=== PATIENT | male | born 1940 | race Caucasian/White ===

== ENCOUNTER 2018-05-04 10:38 | Day surgery (SDC) | payer MEDICARE ==
[~2018-05-04] VITALS: Ht 154.9 cm; Wt 94.2 kg
[~2018-05-04 10:38] MED LIST: ALBU90OI61 INH; ARTTEAOPSO; ASCO500; Aspir 8181 MG PO; CHOL10002 PO; CYAN500 PO; HYDCHL12.5 PO; LEVSOD150; LIDOPRO PATCH1 EACH TOP; LISI5; OMEP20ER; OMEPRAZOLE MAGN20 MG PO; OXYB5; SIMV10 PO; Synthroid112 MCG; TOLT4 PO; VENL150ER PO
[2018-05-05 04:12] LABS: BASOPHILS ABSOLUTE AUTO 0.04 K/mm3 (0.00-0.23); BASOPHILS PERCENT AUTO 1 % (0-2); EOSINOPHILS PERCENT AUTO 9 % (0-6); Hematocrit 38.9 % (37.0-53.0); IMMATURE GRAN ABSOLUTE AUTO 0.02 K/mm3 (0.00-0.10); IMMATURE GRAN PERCENT AUTO 0 % (0-1); LYMPHOCYTES ABSOLUTE AUTO 1.49 K/mm3 (0.84-5.20); LYMPHOCYTES PERCENT AUTO 22 % (21-46); MONOCYTES ABSOLUTE AUTO 0.65 K/mm3 (0.16-1.47); MONOCYTES PERCENT AUTO 10 % (4-13); Mean Corpuscular HGB 32.7 pg (26.0-34.0); Mean Corpuscular HGB Conc 33.4 g/dL (31.5-36.5); Mean Corpuscular Volume 98 fL (80-100); Mean Platelet Volume 11.3 fL (9.1-12.4); NEUTROPHILS PERCENT AUTO 59 % (41-73); Platelet Count 193 K/mm3 (150-400); RDW Coefficient Variation 12.7 % (11.7-14.2); RDW Standard Deviation 45.8 fL (35.1-46.3); Red Blood Cell Count 3.98 M/mm3 (4.30-5.90)
[2018-05-05 04:29] LABS: Anion Gap 6 mmol/L (6-16); Blood Urea Nitrogen 25 mg/dL (8-24); Bun/Creatinine Ratio 23.6 (12.0-20.0); CO2, Blood 30 mmol/L (21-32); Calcium, Blood 8.5 mg/dL (8.5-10.1); Chloride, Blood 106 mmol/L (98-108); Creatinine, Blood 1.06 mg/dL (0.60-1.20); Glomerular Filtration Rate >60 (60-); Glucose, Blood 86 mg/dL (70-99); Potassium, Blood 3.9 mmol/L (3.5-5.5); Sodium, Blood 142 mmol/L (136-145)
== END 2018-05-05 12:00 | disposition home or self-care (01) ==
LOC: PCU 10:38 → MHTC 10:38 → PCU 14:23 → MHTC 05-05 12:00
PROVIDERS: Internal Medicine Interventional Cardiology
PROC: 027136Z Dilation of Coronary Artery, Two Arteries with Three Drug-eluting Intraluminal Devices, Percutaneous Approach (ICD-10-PCS; principal; 2018-05-04)
PROC: 4A033BC Measurement of Arterial Pressure, Coronary, Percutaneous Approach (ICD-10-PCS; principal; 2018-05-04)
PROC: B241ZZ3 Ultrasonography of Multiple Coronary Arteries, Intravascular (ICD-10-PCS; principal; 2018-05-04)
DX: I25.119 Atherosclerotic heart disease of native coronary artery with unspecified angina pectoris (principal); I35.0 Nonrheumatic aortic (valve) stenosis; I10 Essential (primary) hypertension; G47.30 Sleep apnea, unspecified; Z79.82 Long term (current) use of aspirin
CPT/HCPCS: 36415; 80048; 85025; 92978; 93005; 93010; 93454; 93571; 93572; 99152; 99153; C1725; C1753; C1760; C1769; C1874; C1887; C9600; C9601; J0360; J1644; J2250; J3010; J7030; J7040; Q9967

== ENCOUNTER 2020-11-08 17:12 | Observation (INO) | payer OTHER, MEDICARE ==
[~2020-11-08] VITALS: Ht 152.4 cm; Wt 104.2 kg
[2020-11-08 19:36] LABS: Influenza A, PCR NEGATIVE (NEGATIVE); Influenza B, PCR NEGATIVE (NEGATIVE); Resp Syncytial Virus, PCR NEGATIVE (NEGATIVE); SARS-Cov-2 (COVID-19) PCR, MMC NEGATIVE (NEGATIVE)
[2020-11-08] MEDS ORDERED: LOSA50 PO (20:04)
[2020-11-08] MEDS ORDERED: HYDROCHLOROTH12.5 MG PO (20:04)
[2020-11-08] MEDS ORDERED: TERA5 PO (20:05)
[2020-11-08] MEDS ORDERED: LEVSOD112 PO (20:05)
[2020-11-08] MEDS ORDERED: FURO20 PO (20:05)
[2020-11-08] MEDS ORDERED: CLOP75 PO (20:05)
[2020-11-08] MEDS ORDERED: TOLT4 PO (20:06)
[2020-11-08] MEDS ORDERED: ZOCOR20 MG PO (20:06)
[2020-11-08] MEDS ORDERED: AMLO10 PO (20:06)
[2020-11-08 20:10] LABS: Albumin, Blood 3.6 g/dL (3.4-5.0); Bilirubin, Direct 0.1 mg/dL (0.0-0.3); Bilirubin, Indirect 0.4 mg/dL (0.1-0.7); Bilirubin, Total 0.5 mg/dL (0.1-1.0); Globulin, Blood 3.5 g/dL (2.2-4.0); Total Protein, Blood 7.1 g/dL (6.4-8.2)
[2020-11-08 20:17] LABS: Source, Urine Clean Catch
[2020-11-08 20:28] LABS: Appearance, Urine Clear (Clear); Bilirubin, Urine Neg (Neg); Blood, Urine Neg (Neg); Color, Urine Yellow (P-Yellow); Glucose Qualitative, Urine Neg (Neg); Ketones, Urine Neg (Neg); Leukocyte Esterase, Urine Neg (Neg); Nitrite, Urine Neg (Neg); Protein, Urine Neg (Neg); Specific Gravity, Urine 1.015 (1.003-1.022); Urobilinogen, Urine NORM (Normal)
--- NOTE | 2020-11-09 04:32 | NUR ---
SUMMARY PT ARRIVED TO FLOOR IN NO DISTRESS. PT DENIES SOB OR CX PAIN. PT HAS STAYED THE NIGHT WITH PT. PT CURRENTLY ON RA AND SPO2 >90%. PT TOLERATING CPAP WHILE SLEEPING. PT REPORTS HAVING DIFFICULTY SLEEPING AND GETTING COMFORTABLE. PT CURRENTLY RESTING AND BREATHING EASY. CALL LIGHT IN REACH AND BED ALARM ON.
[2020-11-09 05:00] LABS: BASOPHILS ABSOLUTE AUTO 0.04 K/mm3 (0.00-0.23); BASOPHILS PERCENT AUTO 1 % (0-2); EOSINOPHILS ABSOLUTE AUTO 0.29 K/mm3 (0.00-0.68); EOSINOPHILS PERCENT AUTO 6 % (0-6); Hematocrit 35.8 % (37.0-53.0); Hemoglobin 11.7 g/dL (13.5-17.5); IMMATURE GRAN ABSOLUTE AUTO 0.03 K/mm3 (0.00-0.10); IMMATURE GRAN PERCENT AUTO 1 % (0-1); LYMPHOCYTES ABSOLUTE AUTO 1.56 K/mm3 (0.84-5.20); LYMPHOCYTES PERCENT AUTO 29 % (21-46); MONOCYTES ABSOLUTE AUTO 0.49 K/mm3 (0.16-1.47); MONOCYTES PERCENT AUTO 9 % (4-13); Mean Corpuscular HGB 32.5 pg (26.0-34.0); Mean Corpuscular HGB Conc 32.7 g/dL (31.5-36.5); Mean Corpuscular Volume 99 fL (80-100); Mean Platelet Volume 11.2 fL (9.1-12.4); NEUTROPHILS PERCENT AUTO 55 % (41-73); Platelet Count 142 K/mm3 (150-400); RDW Coefficient Variation 13.2 % (11.7-14.2); RDW Standard Deviation 47.7 fL (35.1-46.3); White Blood Cell Count 5.31 K/mm3 (4.00-11.30)
[2020-11-09 05:31] LABS: Anion Gap 6 mmol/L (6-16); Blood Urea Nitrogen 29 mg/dL (8-24); Bun/Creatinine Ratio 22.5 (12.0-20.0); CO2, Blood 29 mmol/L (21-32); Calcium, Blood 8.7 mg/dL (8.5-10.1); Chloride, Blood 109 mmol/L (98-108); Creatinine, Blood 1.29 mg/dL (0.60-1.20); Glomerular Filtration Rate 57 (60-); Glucose, Blood 111 mg/dL (70-99); Phosphorus, Blood 3.1 mg/dL (2.5-4.9); Sodium, Blood 144 mmol/L (136-145)
--- NOTE | 2020-11-09 11:50 | NUR ---
PT WAS HAVING ANXIETY AT THIS TIME. WHEN ASKED ABOUT WHAT'S BOTHERING HIM; HE STATED HE DOES NOT KNOW. HE FELT LIKE HE WAS HAVING SOB; O2 SATS WNL. HE ALSO STATED HE FELT LIKE ITS A CP BUT CALLED PARTS REPRESENTATIVE- PT NSR @70S. PT STATED NOT SURE IF ITS CHEST PAIN OR NOT; SAID HE'S PROBABLY HAVING ANXIETY. HE STATED CP POINTED IN THE MIDDLE OF HIS CHEST; GAVE HIM O2 1-2L; HE SAID HE FELT BETTER AND NO MORE CP. RECEIVED AN ORDER FOR ATIVAN PO 0.5MG. PT STATED HE FELT SO MUCH BETTER. HE STATED HE DOES NOT TAKE ANY ANXIETY MEDS AT HOME, BUT TAKES ANTIDEPRESSION MEDS.
--- NOTE | 2020-11-09 16:44 | NUR ---
DISCHARGED PT DISCHARGED TO HOME WITH H&H. PT TRANSPORTED VIA WC WITH DTR AND THIS RN. PT PULLED IV BEFORE IV GET DC'D. PT DENIES ANY DISTRESS OR SOB DURING DISCHARGE. PT DENIES CP. PT EDUCATED ABOUT THE MEDICATION AND PCP FU; WILL FU [facility] AND [facility] AND [facility] AWARE. PT ALSO RECEIVED FLUIDS OF LR BEFORE GOING HOME. VSS. MED REC DONE.
== END 2020-11-09 16:24 | disposition home health service (06) ==
LOC: ER 17:12 → MEDS 17:13
PROVIDERS: Emergency Medicine; Nurse Practitioner Acute Care; ADMIT Internal Medicine
DX: N17.9 Acute kidney failure, unspecified (principal); R06.02 Shortness of breath; R79.1 Abnormal coagulation profile; G47.33 Obstructive sleep apnea (adult) (pediatric); E03.9 Hypothyroidism, unspecified; I10 Essential (primary) hypertension; E78.5 Hyperlipidemia, unspecified; Z91.81 History of falling; Z79.01 Long term (current) use of anticoagulants; Z20.822 Contact with and (suspected) exposure to COVID-19; Z87.891 Personal history of nicotine dependence
CPT/HCPCS: 0241U; 36415; 74176; 78580; 80069; 80076; 81003; 83690; 84484; 85025; 85730; 93005; 93010; 93970; 94660; 94762; 96372; 97110; 97116; 97162; 99285-25; A9270; A9540; G0378; J1650; J7120

== ENCOUNTER 2021-01-08 21:59 | Emergency (ER) | payer MEDICARE, OTHER ==
[~2021-01-08] VITALS: Ht 154.9 cm; Wt 103.0 kg
[~2021-01-08 21:59] MED LIST changes: +AMLO10 PO; +CLOP75 PO; +FURO20 PO; +HYDROCHLOROTH12.5 MG PO; +LEVSOD112 PO; +LOSA50 PO; +TERA5 PO; +ZOCOR20 MG PO
[2021-01-08] MEDS ORDERED: ASCO500 PO (22:51)
[2021-01-08] MEDS ORDERED: Aspir 8181 MG PO (22:51)
[2021-01-08] MEDS ORDERED: VITAMIN D325 MC3 PO (22:52)
[2021-01-08] MEDS ORDERED: VITAMIN B125000 MC1 PO (22:53)
[2021-01-08] MEDS ORDERED: OMEP20ER PO (22:54)
[2021-01-08] MEDS ORDERED: LOSA50 PO (22:54)
[2021-01-08] MEDS ORDERED: PROAIR DIGIHAL90 MCG INH (22:55)
[2021-01-08] MEDS ORDERED: VENL75ER PO (22:56)
== END 2021-01-09 02:30 | disposition home or self-care (01) ==
LOC: ER 21:59
DX: S09.90XA Unspecified injury of head, initial encounter (principal); M54.6 Pain in thoracic spine; M54.5 Low back pain; K21.9 Gastro-esophageal reflux disease without esophagitis; E03.9 Hypothyroidism, unspecified; Z88.5 Allergy status to narcotic agent; Z79.82 Long term (current) use of aspirin; Z79.899 Other long term (current) drug therapy; Z87.891 Personal history of nicotine dependence; W18.30XA Fall on same level, unspecified, initial encounter; Y92.009 Unspecified place in unspecified non-institutional (private) residence as the place of occurrence of the external cause
CPT/HCPCS: 70450; 72080; 99284-25; A9270

== ENCOUNTER 2021-08-22 13:11 | Inpatient (IN) | payer OTHER ==
[~2021-08-22] VITALS: Ht 154.9 cm; Wt 99.9 kg
[~2021-08-22 13:11] MED LIST changes: +ASCO500 PO; +OMEP20ER PO; +PROAIR DIGIHAL90 MCG INH; +VENL75ER PO; +VITAMIN D32000 UNI1 PO; +Vitamin B-12100 MCG PO
[2021-08-22 13:57] LABS: BASOPHILS ABSOLUTE AUTO 0.03 K/mm3 (0.00-0.23); BASOPHILS PERCENT AUTO 0 % (0-2); EOSINOPHILS ABSOLUTE AUTO 0.08 K/mm3 (0.00-0.68); EOSINOPHILS PERCENT AUTO 1 % (0-6); Hematocrit 35.4 % (37.0-53.0); Hemoglobin 11.9 g/dL (13.5-17.5); IMMATURE GRAN ABSOLUTE AUTO 0.05 K/mm3 (0.00-0.10); IMMATURE GRAN PERCENT AUTO 1 % (0-1); LYMPHOCYTES ABSOLUTE AUTO 0.84 K/mm3 (0.84-5.20); LYMPHOCYTES PERCENT AUTO 12 % (21-46); MONOCYTES ABSOLUTE AUTO 0.85 K/mm3 (0.16-1.47); MONOCYTES PERCENT AUTO 12 % (4-13); Mean Corpuscular HGB 33.2 pg (26.0-34.0); Mean Corpuscular HGB Conc 33.6 g/dL (31.5-36.5); Mean Corpuscular Volume 99 fL (80-100); NEUTROPHILS ABSOLUTE AUTO 5.07 K/mm3 (1.96-9.15); NEUTROPHILS PERCENT AUTO 73 % (41-73); Platelet Count 147 K/mm3 (150-400); RDW Coefficient Variation 13.4 % (11.7-14.2); RDW Standard Deviation 49.1 fL (35.1-46.3); Red Blood Cell Count 3.58 M/mm3 (4.30-5.90); White Blood Cell Count 6.92 K/mm3 (4.00-11.30)
[2021-08-22] MEDS ORDERED: Venlafaxine HC225 MG PO (14:31)
[2021-08-22] MEDS ORDERED: BUSP5 PO (14:31)
[2021-08-22] MEDS ORDERED: ZINC15 PO (14:32)
[2021-08-22] MEDS ORDERED: TIOT18 INH (14:32)
[2021-08-22 14:35] LABS: Bilirubin, Total 0.4 mg/dL (0.1-1.0); Bun/Creatinine Ratio 21.5 (12.0-20.0); Calcium, Blood 8.6 mg/dL (8.5-10.1); Creatinine, Blood 1.58 mg/dL (0.60-1.20); Globulin, Blood 2.9 g/dL (2.2-4.0); Potassium, Blood 4.8 mmol/L (3.5-5.5); Total Protein, Blood 5.9 g/dL (6.4-8.2); Troponin I 0.035 ng/mL (0.000-0.040)
[2021-08-22] MEDS ORDERED: LIDO700A20 TOP (23:01)
[2021-08-22] MEDS ORDERED: MEMA5TAB PO (23:02)
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
--- NOTE | 2021-08-23 05:30 | NUR ---
SHIFT SUMMARY: BP IS STABLE, PATIENT IS CONTINENT. OCCASSIONALY USES THE CALL [facility] BUT USUALLY SETS OFF THE BED ALARM OR YELLS OUT FOR ASSISTANCE. REPEAT TROPONIN WAS 0.165. RESULT WAS CALLED TO DR LAND. NO EVENTS ON TELI AND BED ALARM REMAINS ON FOR SAFETY.
[2021-08-23 05:40] LABS: Bun/Creatinine Ratio 20.3 (12.0-20.0); Calcium, Blood 8.5 mg/dL (8.5-10.1); Creatinine, Blood 1.28 mg/dL (0.60-1.20); Potassium, Blood 4.2 mmol/L (3.5-5.5)
--- NOTE | 2021-08-23 12:06 | NUR ---
Initial Interview with [facility] Community Scale Tester 1. Who did you speak with? Spoke with patient's Priscilla 2. What is the patient's prior level of functions? Patient lives with his Priscilla. Patient has dementia and Priscilla provides assistance with ADL's. Daughter Liliana lives on the property in a fifth wheel (works night time nanny) and she assists in the evening as needed. Patient has a rollator, states he is having difficulty using and cannot properly use at this time. Patient no longer drives, Priscilla and Liliana provide transportation as needed. Priscilla states she assist with ADL's until she is no longer able to do so and does not want patient to go into vermin exterminator care facility at this time. 3. What is the patient's current living situation? Patient lives with his Priscilla and daughter lives on the property in a 5th wheel camper trailer and provides assistance when needed. 4. Is the patient and/or family able to provide transportation to and from doctor's appointments and case picker prescriptions? Yes, and daughter provide transportation. 5. Does patient still drive? No 6. POA/PCP/NOK: NOK: Priscilla and daughter Liliana/PCP: ROJAS Julio 7. Discharge goals: TBD -Home: TBD -DME: TBD -Medication Management: -[facility] -Housekeeping need: -Cooking: 8. List barriers to discharge: None known at this time 9. Discharge Plan: Home with Home Health/contact [facility] Jonathan to coordinate caregiving services assessment 10. PCP Follow up appointment: Will be scheduled within seven calendar days of discharge 11. : Yes, 80% unemployable
[2021-08-23 13:35] LABS: Anti-Xa UFH, PHA Monitoring <0.10 IU/mL; Prothrombin Time Results 11.5 Sec (9.7-11.5)
--- NOTE | 2021-08-23 17:12 | NUR ---
SHIFT SUMMARY PATIENT DENIES PAIN, NAUSEA, AND SHORTNESS OF BREATH. PATIENT IS ON ROOM AIR SATURATING AT 94%. PATIENT DOES USE 2L VIA N/C AT NIGHT. THAT IS BASELINE. PATIENT IS AO X2. PATIENT IS IMPULSIVE AND ATTEMPTED TO GET OOB TWICE TODAY UNASSISTED. PT WORKED WITH PATIENT THIS MORNING, PATIENT IS A MODERATE ASSSIT WITH 1 PERSON. STRESS TEST ORDERED. HEPARIN DRIP STARTED. PATIENT IS EATING AND DRINKING WELL. PATIENT IS PLEASANT AND COOPERATIVE WITH CARE.
[2021-08-23 19:02] LABS: Influenza A, PCR NEGATIVE (NEGATIVE); Influenza B, PCR NEGATIVE (NEGATIVE); Resp Syncytial Virus, PCR NEGATIVE (NEGATIVE)
[2021-08-23 19:05] LABS: SARS-Cov-2 (COVID-19) PCR, MMC POSITIVE (NEGATIVE)
--- NOTE | 2021-08-23 20:25 | NUR ---
CALLED HOSPITALIST INFORMED HER THAT THE PT'S REQUESTS A URINE & BLOOD CULTURE. INFORMED HER THAT THE PT'S REQUESTS A VISIT FROM THE HOSPITALIST TO THE ROOM SO THAT SHE CAN RELAY HER CONCERNS RE: THE PT
[2021-08-23 22:18] LABS: Source, Urine Voided
[2021-08-23 22:25] LABS: Bilirubin, Urine Neg (Neg); Blood, Urine Neg (Neg); Glucose Qualitative, Urine Neg (Neg); Ketones, Urine Neg (Neg); Leukocyte Esterase, Urine Neg (Neg); Nitrite, Urine Neg (Neg); Protein, Urine 1+ (Neg); Urobilinogen, Urine NORM (Normal)
[2021-08-23 22:32] LABS: Appearance, Urine Clear (Clear); Color, Urine Yellow (P-Yellow)
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
[2021-08-24 05:25] LABS: BASOPHILS ABSOLUTE AUTO 0.04 K/mm3 (0.00-0.23); BASOPHILS PERCENT AUTO 1 % (0-2); EOSINOPHILS ABSOLUTE AUTO 0.05 K/mm3 (0.00-0.68); EOSINOPHILS PERCENT AUTO 1 % (0-6); Hematocrit 37.5 % (37.0-53.0); IMMATURE GRAN ABSOLUTE AUTO 0.05 K/mm3 (0.00-0.10); IMMATURE GRAN PERCENT AUTO 1 % (0-1); LYMPHOCYTES ABSOLUTE AUTO 1.09 K/mm3 (0.84-5.20); LYMPHOCYTES PERCENT AUTO 17 % (21-46); MONOCYTES ABSOLUTE AUTO 0.78 K/mm3 (0.16-1.47); MONOCYTES PERCENT AUTO 12 % (4-13); Mean Corpuscular HGB 32.1 pg (26.0-34.0); Mean Corpuscular Volume 100 fL (80-100); Mean Platelet Volume 10.9 fL (9.1-12.4); NEUTROPHILS PERCENT AUTO 69 % (41-73); Platelet Count 144 K/mm3 (150-400); RDW Coefficient Variation 13.6 % (11.7-14.2); Red Blood Cell Count 3.74 M/mm3 (4.30-5.90); White Blood Cell Count 6.41 K/mm3 (4.00-11.30)
[2021-08-24 06:22] LABS: Chloride, Blood 105 mmol/L (98-108); Sodium, Blood 139 mmol/L (136-145)
[2021-08-24 06:40] LABS: Alanine Aminotransfer (ALT/SGP 25 U/L (12-78); Albumin, Blood 2.8 g/dL (3.4-5.0); Alk Phos 84 U/L (50-136); Anion Gap 8 mmol/L (6-16); Aspartate Aminotrans (AST/SGOT 23 U/L (12-37); Bilirubin, Total 0.4 mg/dL (0.1-1.0); Blood Urea Nitrogen 22 mg/dL (8-24); CO2, Blood 26 mmol/L (21-32); Calcium, Blood 8.2 mg/dL (8.5-10.1); Creatinine, Blood 1.16 mg/dL (0.60-1.20); Globulin, Blood 2.9 g/dL (2.2-4.0); Glomerular Filtration Rate >60 (60-); Glucose, Blood 94 mg/dL (70-99); Total Protein, Blood 5.7 g/dL (6.4-8.2)
--- NOTE | 2021-08-24 19:20 | NUR ---
Case Conference: Spoke with pt's today at length outside of pt's room. She states the doctor caring for her today had suggested Palliative or Hospice Care for her , and she states "NO WAY", and states "She" isn't ready for that. I gently asked her if her might be, and she states it's far too early to have those discussion. She is planning a d/c home tomorrow with HH but I have yet to see any plans like that in the works. I will remain available.
--- NOTE | 2021-08-24 20:04 | NUR ---
SHIFT SUMMARY: AT BEDSIDE. PER REPORT FROM NOC RN, PT DID NOT SLEEP ALL NIGHT. THIS MORNING HE WAS GROGGY AND CONFUSED, ATTEMPTING TO GET OOB FREQUENTLY, A&O X 1. NEW IV PLACED FOR HEPARIN GTT; CURRENT RATE IS 10 UNITS/KG/HR OR 14.2 ML/HR. NO EVENTS ON TELEMETRY, SR 80-90'S. HAS COARSE, CRACKLING LUNG SOUNDS, ON 2 L/MIN NC, SKILL LABOR COUGH. INCONTINENT OF BLADDER, ATTENDS IN PLACE; PT KEPT TRYING TO GET OOB TO USE BR, NEEDED ASSISTANCE WITH URINAL BUT LIKELY HAS RETENTION. RECEIVED VERBAL ORDER TO STRAIGHT CATH IF NEEDED. GAVE TYLENOL TWICE FOR PAIN /FEVER. AFTER HAVING TAKEN A NAP TODAY, HIS MENTATION CLEARED AND HE WAS ABLE TO SWALLOW PILLS WITH WATER WITHOUT DIFFICULTY. HYPERTENSIVE; PRN HYDRALAZINE GIVEN X 2. HAD FIRST PART OF NUCLEAR STRESS TEST TODAY, SECOND PART TOMORROW AFTERNOON. HAD JESSICA FROM PALLIATIVE CARE COME TO BEDSIDE TO SPEAK TO PT'S EFREN ABOUT HOME CARE/HOSPICE OPTIONS AND TO GIVE RESOURCES.
--- NOTE | 2021-08-25 03:45 | NUR ---
CRITICAL LAB: GRAM POSITIVE COCCI IN [place]. HOSPITALIST DR LAND REPORTS HE WILL REVIEW CHART.
--- NOTE | 2021-08-25 04:51 | NUR ---
SHIFT SUMMARY 81 YR m ADMITTED ON 08/22/21 FOR ELEVATED TROPONINE LEVEL. DNR. PT IS COVIS POS AND RESULTS CAME BACK TODAY FOR GRAM + infection in blood work. pt is confused at times and continually tries to climb out of bed. today he was placed in a js vest with and order is in for soft wrist restraints as well, although they have not been used. pt's is at bedside and staying in room with him.
[2021-08-25 08:26] LABS: BASOPHILS ABSOLUTE AUTO 0.03 K/mm3 (0.00-0.23); BASOPHILS PERCENT AUTO 1 % (0-2); EOSINOPHILS ABSOLUTE AUTO 0.07 K/mm3 (0.00-0.68); EOSINOPHILS PERCENT AUTO 2 % (0-6); Hemoglobin 12.4 g/dL (13.5-17.5); IMMATURE GRAN ABSOLUTE AUTO 0.03 K/mm3 (0.00-0.10); IMMATURE GRAN PERCENT AUTO 1 % (0-1); LYMPHOCYTES ABSOLUTE AUTO 1.34 K/mm3 (0.84-5.20); LYMPHOCYTES PERCENT AUTO 32 % (21-46); MONOCYTES ABSOLUTE AUTO 0.56 K/mm3 (0.16-1.47); MONOCYTES PERCENT AUTO 13 % (4-13); Mean Corpuscular HGB 32.4 pg (26.0-34.0); Mean Corpuscular HGB Conc 32.6 g/dL (31.5-36.5); Mean Corpuscular Volume 99 fL (80-100); Mean Platelet Volume 10.6 fL (9.1-12.4); NEUTROPHILS PERCENT AUTO 52 % (41-73); Platelet Count 153 K/mm3 (150-400); RDW Coefficient Variation 13.4 % (11.7-14.2); RDW Standard Deviation 49.4 fL (35.1-46.3); Red Blood Cell Count 3.83 M/mm3 (4.30-5.90); White Blood Cell Count 4.23 K/mm3 (4.00-11.30)
[2021-08-25 09:11] LABS: Anion Gap 7 mmol/L (6-16); Blood Urea Nitrogen 18 mg/dL (8-24); Bun/Creatinine Ratio 16.5 (12.0-20.0); CO2, Blood 26 mmol/L (21-32); Calcium, Blood 8.2 mg/dL (8.5-10.1); Chloride, Blood 108 mmol/L (98-108); Creatinine, Blood 1.09 mg/dL (0.60-1.20); Glomerular Filtration Rate >60 (60-); Glucose, Blood 91 mg/dL (70-99); Potassium, Blood 4.3 mmol/L (3.5-5.5); Sodium, Blood 141 mmol/L (136-145)
--- NOTE | 2021-08-25 17:58 | NUR ---
SUMMARY PT SITTING UP IN BED EATING DINNER, HIS IS AT THE BEDSIDE, SHE HAS BEEN HERE MOST OF THE DAY, PT HAS BEEN UP TO THE CHAIR A FEW TIMES AND WAS ALSO ABLE TO GET ON THE COMMODE AND HAVE A BM, PT HAD THE SECOND PART OF HIS STRESS TEST TODAY, RESULTS NOT BACK YET, PT TOOK SOME OF HIS MEDS AFTER SOME COAXING, VSS, WILL CONT TO MONITOR
[2021-08-26 05:39] LABS: Bun/Creatinine Ratio 19.3 (12.0-20.0); Calcium, Blood 8.3 mg/dL (8.5-10.1); Creatinine, Blood 1.4 mg/dL (0.60-1.20)
--- NOTE | 2021-08-26 06:46 | NUR ---
SHIFT SUMMARY PT IS AWAKE AND ALERT TO SELF AND FAMILY. PT SEEMS CONFUSED AND FORGETFUL, KEPT ASKING THE SAME QUESTION OVER AND OVER. AT BEDSIDE. NO ACUTE EVENTS OVERNIGHT. ALL MEDS GIVEN PER EMAR. HAKEEM VEST REMAINS IN PLACE. PT WAS CHANGED AND REPOSITIONNED NEEDED. BED IN LOWER POSITION AND CALL LIGHT IN REACH.
[2021-08-26] MEDS ORDERED: CEFP200 PO (11:00)
--- NOTE | 2021-08-26 12:11 | NUR ---
Received referral from nurse hourly caregiver (Marcy Zuleta) on 08/25/2021. Patient is to discharge today- 08/25/2021 with orders for home health and elected [facility]. Contacted patient's (Priscilla Ac) to further discuss the above. Patient's is agreeable to the above. Discussed homebound status definition with patient's . Patient's verbalized understanding. Discussed what home health is vs what it is not (in home caregivers/housekeeping). Patient's verbalized understanding. Discussed the next steps in the process of an initial assessment to determine frequency of visits. Again patient's verbalized understanding. Offered a chance for patient's to ask questions regarding the above of which there were none. Gathered all supporting documentation for referral (face sheet, face to face, med list, H&P, and most recent PT assessment) and sent to [facility] for review. No further interventions required. Catia Galvez Referral Liaison
--- NOTE | 2021-08-26 12:15 | NUR ---
Received referral from nurse urgent care technician (Marcy Zuleta) on 08/26/2021. Patient is to discharge today- 08/26/2021 with orders for home health and elected [facility]. Contacted patient's (Priscilla Ac) to further discuss the above. Patient's is agreeable to the above. Discussed homebound status definition with patient's . Patient's verbalized understanding. Discussed what home health is vs what it is not (in home caregivers/housekeeping). Patient's verbalized understanding. Discussed the next steps in the process of an initial assessment to determine frequency of visits. Again patient's verbalized understanding. Offered a chance for patient's to ask questions regarding the above of which there were none. Gathered all supporting documentation for referral (face sheet, face to face, med list, H&P, and most recent PT assessment) and sent to [facility] for review. No further interventions required. Catia Galvez Referral Liaison
--- NOTE | 2021-08-26 14:20 | NUR ---
PT DISCHARGED TO HOME, AWAITING TO RETURN
--- NOTE | 2021-08-26 15:29 | NUR ---
Per Dr. Horn discharge appropriate on: 08/26/21. Patient and do not oppose discharge. Patient's provided transportation to residence. DME: Patient has a rollator but states he is unable to use due to cognition (dementia). [facility] Home Health coordinator Catia Galvez contacted to initiate home health per discharge orders and [facility] Health mechanical service representative contacted on discharge date. Patient will be contacted by [facility] Transition of Care to schedule hospital follow-up with Dr. Wilmar Julio. Patient has a good support network; daughter lives on the property and assists with ADLs and provides transportation as needed. Patient's to contact PCP if any questions regarding medication management or if condition worsens, patient to go to urgent care. No barriers to discharge.
--- NOTE | 2021-08-26 15:48 | NUR ---
SUMMARY/DISCHARGEPT DISCHARGED TO HOME WITH HOME HEALTH, DISCHARGE INSTRUCTIONS GIVEN TO THE SPOUSE, SHE VERBALIZED UNDERSTANDING OF INSTRUCTIONS REGARDING MEDS AND FOLLOW UP, PT TAKEN OUT VIA WHEELCHAIR
== END 2021-08-26 15:21 | disposition home health service (06) | DRG 178 ==
LOC: ER 13:11 → MEDS 13:12
PROVIDERS: Family Medicine; Hospitalist; Internal Medicine; Physician Assistant; ADMIT Internal Medicine
PROC: XW033G6 Introduction of REGN-COV2 Monoclonal Antibody into Peripheral Vein, Percutaneous Approach, New Technology Group 6 (ICD-10-PCS; principal; 2021-08-23)
PROC: 8E0ZXY6 Isolation (ICD-10-PCS; 2021-08-23)
DX: U07.1 COVID-19 (principal); F03.91 Unspecified dementia, unspecified severity, with behavioral disturbance; G93.49 Other encephalopathy; Z68.41 Body mass index [BMI] 40.0-44.9, adult; I25.10 Atherosclerotic heart disease of native coronary artery without angina pectoris; K21.9 Gastro-esophageal reflux disease without esophagitis; Z23 Encounter for immunization; R07.9 Chest pain, unspecified; E03.9 Hypothyroidism, unspecified; F32.A Depression, unspecified; N18.30 Chronic kidney disease, stage 3 unspecified; Z98.890 Other specified postprocedural states; Z90.49 Acquired absence of other specified parts of digestive tract; Z95.2 Presence of prosthetic heart valve; Z66 Do not resuscitate; Z79.899 Other long term (current) drug therapy; Z88.5 Allergy status to narcotic agent; Z79.82 Long term (current) use of aspirin; I12.9 Hypertensive chronic kidney disease with stage 1 through stage 4 chronic kidney disease, or unspecified chronic kidney disease; J44.9 Chronic obstructive pulmonary disease, unspecified; E66.9 Obesity, unspecified; Z78.1 Physical restraint status; Z53.29 Procedure and treatment not carried out because of patient's decision for other reasons; R09.02 Hypoxemia
CPT/HCPCS: 0241U; 36415; 70450; 71046; 71260; 73502; 78452; 80048; 80053; 83880; 84484; 85025; 85520; 85610; 85730; 87040; 92526; 92610; 93005; 93010; 93017; 94640; 94760; 96372; 97110; 97162; 97530; 99285-25; A9270; A9500; G0378; J0360; J0696; J0706; J1644; J1650; J2785; J7120; Q0243; Q9967

== ENCOUNTER → 2021-09-15 | Outpatient (CLI) | payer OTHER ==
[~2021-09-15] MED LIST changes: +BUSP5 PO; +CEFP200 PO; +LIDO700A20 TOP; +MEMA5TAB PO; +TIOT18 INH; +Venlafaxine HC225 MG PO; +ZINC15 PO
[2021-09-15 15:01] LABS: BASOPHILS ABSOLUTE AUTO 0.04 K/mm3 (0.00-0.23); BASOPHILS PERCENT AUTO 1 % (0-2); EOSINOPHILS ABSOLUTE AUTO 0.23 K/mm3 (0.00-0.68); EOSINOPHILS PERCENT AUTO 4 % (0-6); Hematocrit 35.6 % (37.0-53.0); Hemoglobin 11.4 g/dL (13.5-17.5); IMMATURE GRAN ABSOLUTE AUTO 0.03 K/mm3 (0.00-0.10); IMMATURE GRAN PERCENT AUTO 1 % (0-1); LYMPHOCYTES ABSOLUTE AUTO 1.21 K/mm3 (0.84-5.20); LYMPHOCYTES PERCENT AUTO 20 % (21-46); MONOCYTES ABSOLUTE AUTO 0.68 K/mm3 (0.16-1.47); MONOCYTES PERCENT AUTO 11 % (4-13); Mean Corpuscular HGB 32.3 pg (26.0-34.0); Mean Corpuscular Volume 101 fL (80-100); Mean Platelet Volume 11.1 fL (9.1-12.4); NEUTROPHILS ABSOLUTE AUTO 3.98 K/mm3 (1.96-9.15); NEUTROPHILS PERCENT AUTO 65 % (41-73); Platelet Count 188 K/mm3 (150-400); RDW Coefficient Variation 13.6 % (11.7-14.2); RDW Standard Deviation 49.9 fL (35.1-46.3); Red Blood Cell Count 3.53 M/mm3 (4.30-5.90); White Blood Cell Count 6.17 K/mm3 (4.00-11.30)
[2021-09-15 15:19] LABS: Alanine Aminotransfer (ALT/SGP 24 U/L (12-78); Alk Phos 86 U/L (50-136); Anion Gap 4 mmol/L (6-16); Aspartate Aminotrans (AST/SGOT 17 U/L (12-37); Bilirubin, Total 0.3 mg/dL (0.1-1.0); Blood Urea Nitrogen 30 mg/dL (8-24); Bun/Creatinine Ratio 28.3 (12.0-20.0); CO2, Blood 30 mmol/L (21-32); Calcium, Blood 8.5 mg/dL (8.5-10.1); Chloride, Blood 109 mmol/L (98-108); Creatinine, Blood 1.06 mg/dL (0.60-1.20); Globulin, Blood 2.9 g/dL (2.2-4.0); Glomerular Filtration Rate >60 (60-); Glucose, Blood 124 mg/dL (70-99); Potassium, Blood 4.3 mmol/L (3.5-5.5); Sodium, Blood 143 mmol/L (136-145); Total Protein, Blood 5.9 g/dL (6.4-8.2)
== END | disposition home or self-care (01) ==
LOC: LAB SHORT 13:16
PROVIDERS: Physician Assistant
DX: I25.10 Atherosclerotic heart disease of native coronary artery without angina pectoris (principal); E03.9 Hypothyroidism, unspecified
CPT/HCPCS: 80053; 82306; 82607; 85025

== ENCOUNTER 2022-08-28 15:40 | Observation (INO) | payer OTHER, MEDICARE ==
[~2022-08-28] VITALS: Ht 170.2 cm; Wt 99.8 kg
[2022-08-28 16:41] LABS: Base Excess Venous 2.9 mmol/L; Bicarbonate Venous 25.4 mmol/L (24.0-30.0); PCO2 Venous 61.5 mmHg (38-42); pH Blood Venous 7.29 (7.34-7.37)
[2022-08-28 16:43] LABS: BASOPHILS ABSOLUTE AUTO 0.04 K/mm3 (0.00-0.23); BASOPHILS PERCENT AUTO 1 % (0-2); EOSINOPHILS PERCENT AUTO 7 % (0-6); Hematocrit 37.3 % (37.0-53.0); Hemoglobin 12.2 g/dL (13.5-17.5); IMMATURE GRAN ABSOLUTE AUTO 0.03 K/mm3 (0.00-0.10); IMMATURE GRAN PERCENT AUTO 1 % (0-1); LYMPHOCYTES PERCENT AUTO 23 % (21-46); MONOCYTES ABSOLUTE AUTO 0.68 K/mm3 (0.16-1.47); MONOCYTES PERCENT AUTO 11 % (4-13); Mean Corpuscular HGB 32.7 pg (26.0-34.0); Mean Corpuscular HGB Conc 32.7 g/dL (31.5-36.5); Mean Corpuscular Volume 100 fL (80-100); Mean Platelet Volume 10.9 fL (9.1-12.4); NEUTROPHILS ABSOLUTE AUTO 3.46 K/mm3 (1.96-9.15); NEUTROPHILS PERCENT AUTO 58 % (41-73); Platelet Count 179 K/mm3 (150-400); RDW Coefficient Variation 14.1 % (11.7-14.2); RDW Standard Deviation 51.1 fL (35.1-46.3); Red Blood Cell Count 3.73 M/mm3 (4.30-5.90); White Blood Cell Count 6.01 K/mm3 (4.00-11.30)
[2022-08-28 17:03] LABS: Alanine Aminotransfer (ALT/SGP 19 U/L (12-78); Albumin, Blood 3.1 g/dL (3.4-5.0); Albumin/Globulin Ratio 0.9 (0.8-1.8); Alk Phos 65 U/L (50-136); Anion Gap Unable to Calculate mmol/L (6-16); Aspartate Aminotrans (AST/SGOT 14 U/L (12-37); Bilirubin, Total 0.4 mg/dL (0.1-1.0); Blood Urea Nitrogen 29 mg/dL (8-24); Bun/Creatinine Ratio 18.8 (12.0-20.0); CO2, Blood 29 mmol/L (21-32); Calcium, Blood 8.7 mg/dL (8.5-10.1); Chloride, Blood 113 mmol/L (98-108); Creatinine, Blood 1.54 mg/dL (0.60-1.20); Globulin, Blood 3.3 g/dL (2.2-4.0); Glomerular Filtration Rate 44 (60-); Glucose, Blood 111 mg/dL (70-99); Potassium, Blood 4.3 mmol/L (3.5-5.5); Sodium, Blood 139 mmol/L (136-145); Total Protein, Blood 6.4 g/dL (6.4-8.2)
--- NOTE | 2022-08-28 17:40 | NUR ---
ED Palliative Care Consult Spoke with Dr Sheehna and discussed case. Pt to the ED with respiratory failure. Goals of care discussion may be beneficial as Pt was D/C from the hospital last week. Some concerns from family regarding caregiver support as well. Pt's medical history and comorbidities include: Dementia, Recurrent SBO, GERD, Ventral Hernias, Hypertensive Vascular Disease, and Sleep Apnea. Pt resting on gurney and is on BIPAP. Pt non verbal at this time. Pt's spouse, grandson, and daughter at bedside. Daughter steps out to take a phone call. Engaged in therapeutic discussion regarding disease process including trajectory. Discussed options including admission to the hospital if appropriate and hospice. Grandson reports time to consider hospice with Pt's spouse tentavely in agreement. Family would like Pt admitted and will consider hospice upon D/C. Palliative Care will remain available. Caremanagement to F/U caregiver support concerns. Relayed information to ED LUZ Kline.
[2022-08-28 19:38] LABS: Base Excess Venous 0 mmol/L; Bicarbonate Venous 23.4 mmol/L (24.0-30.0); PCO2 Venous 54.1 mmHg (38-42)
[2022-08-28 19:56] LABS: Influenza A, PCR NEGATIVE (NEGATIVE); Influenza B, PCR NEGATIVE (NEGATIVE); Resp Syncytial Virus, PCR NEGATIVE (NEGATIVE); SARS-Cov-2 (COVID-19) PCR, MMC NEGATIVE (NEGATIVE)
--- NOTE | 2022-08-28 21:25 | NUR ---
THE PATIENT IS AN 82 YEAR-OLD MALE WITH A DIAGNOSIS OF TOXIC METABOLIC ENCEPHALOPATHY, HYPOXIA. PATIENT WAS TRANSFERRED FROM THE [facility] USING A SLIDE SHEET. A&O TO SELF AND FAMILY. PATIENT'S DAUGHTER HAS REQUESTED TO REMAIN AT BEDSIDE DUE TO PATIENT'S HISTORY OF DEMENITA. TELE REVEALS SINUS BRADYCARDIA, HR 50'S. PATINT IS DONNING CPAP /C 5L BLEED-IN. RR EVEN AND UNLABORED. SPO2 >92% ON CONTINUOUS PULSE OX MONITORING. PAST MEDICAL HISTORY REMARKABLE FOR SLEEP APEA. NO ACUTE CONCERNS AT THIS TIME. BED LOW AND LOCKED. CALL LIGHT WITHIN REACH. BED ALARM IS ON. THIS RN WILL CONTINUE TO MONITOR.
--- NOTE | 2022-08-29 03:48 | NUR ---
NEWSPAPER EDITOR MANAGING SUMMARY A&O TO SELF AND FAMILY. PATIENT'S DAUGHTER HAS REMAIED AT BEDSIDE THROUGHOUT THE NIGHT. RR EVEN AND UNLABORED ON RA. SPO2 >92%. PATIENT IS DONNING A CPAP /C 5L BLEED-IN RELATED TO MEDICAL HISTORY OF SLEEP APEA, AND APPEARS TO BE TOLERATING THIS INTERVENTION WELL. TELE REVEALS SINUS BRADYCARDIA. PATIENT IS CURRENTLY NPO. ST EVALUATION PENDING. PATIENT OBSERVED TO BE SLEEPING COMFORTABLY THROUGHOUT THE NIGHT. THERE HAVE BEEN MINIMAL EPISODES OF RESTLESSNESS AND PATIENT HAS BEEN REDIRECTABLE. BED LOW AND LOCKED. CALL LIGHT WITHIN REACH. BED ALARM IS ON. THIS RN WILL CONTINUE TO CLOSELY MONITOR.
[2022-08-29 05:49] LABS: Base Excess Venous 2.9 mmol/L; Bicarbonate Venous 26.9 mmol/L (24.0-30.0); PCO2 Venous 38.8 mmHg (38-42); pH Blood Venous 7.45 (7.34-7.37)
--- NOTE | 2022-08-29 18:22 | NUR ---
Met with pt and family this evening at bedside. Pt remains pleasant, easily confused. He continues wearing BIPAP mask as long as he can tolerate it, then pulls it off. He lives with his , and has 3 very supportive adult children at the bedside. The family have many questions about hospice care this evening, as well as "comfort care" here in the hospital. They state they would like to take tonight to think things over, and we can speak again in the morning. The pt states he's been "having breathing problems for a long time" and he states he's "tired" when pressed by family on an answer of trying further treatment vs hospice. Plan to see pt and family again tomorrow.
--- NOTE | 2022-08-29 19:56 | NUR ---
SHIFT SUMMARY PT ALERT TO SELF. CONFUSED D/T DEMENTIA. DAUGTHER OR OTHER FAMILY AT BEDSIDE THROUGH OUT DAY. PT WORKED WITH PHYSCIAL THERAPY AND WAS ABLE TO AMBULATE FOR A SHORT DISTANCE IN [place]. UP TO CHAIR FOR SEVERAL HOURS IN AFTERNOON. OT AND SPEACH THERAPIST ALSO WORKED WITH PT TODAY. PALIATIVE CARE IN TO DISCUSS OPTIONS WITH FAMILY. NO C/O PAIN. ON 4L OF OXYGEN BUT USES BIPAP DURING SLEEP. REPORT GIVEN TO SENIOR ANDROID SOFTWARE ENGINEER NURSE.
--- NOTE | 2022-08-30 03:39 | NUR ---
ELIGIBILITY TECHNICIAN SUMMARY A&O TO SELF AND FAMILY. VSS. SPO2 >92% ON BIPAP WITH 5L BLEED-IN. TELE REVEALS SINUS RHYTHM, HR 60'S. PATIENT INTERMITTENTLY RESTLESS THROUGHOUT THE NIGHT. DAUGHTER REMAINS AT BEDSIDE. NO ACUTE EVENTS THIS SHIFT. BED LOW AND LOCKED. BED ALARM ON. CALL LIGHT WITHIN REACH. THIS RN WILL CONTINUE TO MONITOR.
--- NOTE | 2022-08-30 16:30 | NUR ---
SHIFT SUMMARY: PATIENT ALERT AND ORIENTED TO SELF, SORROUNDINGS AND FAMILY MEMBER AT BEDSIDE T/O THE DAY. PATIENT ON RA c SPO2 RANGES 93-98% T/O SHIFT. PATIENT WEARS CPAP WHEN SLEEPING T/O THE DAY AND AT NIGHT. PATIENT HAS WHEEZES T/O TO AUSCULTATION. PATIENT DENIES SOB. PATIENT ON TELE, SR IN HIGH 60'S PER ELECTROLYSIS OPERATORNATALY CHRISTINA. DENIES CP/CHEST DISCOMFORT, N/V. VITAL SIGNS REVIEWED. NO IV ACCESS PER ORDER. PATIENT HAS BEEN SITTING UP IN THE RECLINER CHAIR OFF AND ON T/O THE DAY AND TOLERATING WELL. PATIENT PLEASANT AND COOPERATIVE c CARE. CALL LIGHT IN REACH.
--- NOTE | 2022-08-31 02:58 | NUR ---
MINISTER OF RELIGION REPORTED SLIGHT RUN OF BIGEGEMINY. ON BEDSIDE ASSESSMENT. ASYMPTOMATIC. O2 SATS IN THE 90'S. APPEARS TO BE SLEEPING WITHOUT NOTED DISTRESS. WILL CONTINUE TO MONITOR
--- NOTE | 2022-08-31 03:10 | NUR ---
AVIATION MEDICINE SPECIALIST SUMMARY SITTING IN RECLINER AT SHIFT COMMENCE. ASSISTED TO BED AFTER CLEANING UP DUE TO INCONT. FAMILY LEFT EARLIER, REMAINED AT BEDSIDE FOR PT COMFORT. O2 PER CPAP, CONT PULSE OX - 90'S. HR IN THE 60'S, TELE REPORTED SOME IRREGULAR BEATS. RECEIVED HS MEDS FOR SLEEP, MEDS EFFECTIVE, HAS BEEN RESTING WITH FEW INTERRUPTIONS WITH HOB ELEVATED DUE TO ( REPORTED ACID REFLUX). CALL LIGHT IN REACH. RAILS UP X 3. WILL CONTINUE TO MONITOR.
[2022-08-31 12:33] LABS: Base Excess Venous 2.5 mmol/L; Bicarbonate Venous 25.8 mmol/L (24.0-30.0); PCO2 Venous 53.6 mmHg (38-42); pH Blood Venous 7.33 (7.34-7.37)
--- NOTE | 2022-08-31 17:28 | NUR ---
Pt's daughters have further questions, especially regarding the [facility] assistance prior to discharge plans being completed. Per family, pt is 100% service connected, and they would like to explore their options. Care management is aware and working with the family on VA options.
--- NOTE | 2022-08-31 18:14 | NUR ---
SHIFT SUMMARY PATIENT DENIES PAIN, NAUSEA, AND SHORTNESS OF BREATH. PATIENT IS A 1-2P WITH A FWW DEPENDING ON ALERTNESS. PATIENT SLEEPY MOST OF SHIFT. PLACED PATIENT ON CPAP DUE TO PATIENT SLEEPING MOST OF SHIFT. PATIENT FAMILY AT BEDSIDE ENTIRE SHIFT. PATIENT EATING AND DRINKING WELL WHEN AWAEKE. NEEDS CUEING TO SLOW DOWN. PATIENT IS A&O TO SELF AND FAMILY. PATIENT DOES FOLLOW DIRECTIONS WELL AND IS REDIRECTABLE DURING THIS SHIFT. PATIENT PLEASANT AND COOPERATIVE WITH CARE.
--- NOTE | 2022-09-01 04:45 | NUR ---
SHIFT SUMMARY; PT PLEASANT THIS SHIFT. AXO X1, TO SELF AND FAMILY ONLY. PT IS A 2 PERSON ASSIST WITH A FWW. PT SLEPT IN HIS BED T/O THE NIGHT AND THEN REQUESTED TO GET INTO THE CHAIR THIS AM AROUND 0400. PT SLEPT WITH BIPAP ON T/O THE NIGHT. DESATTED TO 87% A FEW TIMES, BUT QUICKLY RECOVERED TO 91-93% WITHIN SECONDS. DAUGHTER PRESENT AT BEDSIDE FOR THE ENTIRE NIGHT. PT CURERENTLY RESTING IN THE RECLINER WITH THE WHEELS LOCKED, CHAIR ALARM ENGAGED AND THE CALL LIGHT AT BEDSIDE.
--- NOTE | 2022-09-01 12:32 | NUR ---
Care Conference: Spoke with STEPHANY Gross at [facility]. According to the documentation she received, she doesn't believe the patient qualifies for [facility] inpatient hospice. She recommends pt be placed into middle or intermediate school principal care, as he would qualify for that. Family has continued to try and plan for the future, but remain unsure as to what is available to him, what he qualifies for, and what is best for him. Plan to review case again with CM and speak with family to review goals.
--- NOTE | 2022-09-01 13:05 | NUR ---
Case Conference: Met with family and pt; they are taking him home tomorrow with [facility], and they are hoping for assist with caregiving hours through the [facility].
--- NOTE | 2022-09-01 16:20 | NUR ---
PT AOX1 AND COOPERATIVE OF CARE. PT IS A 1-2 PERSON ASSIST TO CHAIR OR BED WITH WALKER AND GAITBELT. PT IS IMPULSIVE AND DID BETTER WITH DAUGHTER TO LOOK AFTER HIM IN ROOM. PT WILL NOT CALL. PT WAS UP FOR MEALS. BED IN LOWEST POSITION AND BED ALARM IN PLACE WILL CONTINUE TO MONITOR.
--- NOTE | 2022-09-02 04:04 | NUR ---
SHIFT SUMMARY; NO ACUTE CHANGES OVERNIGHT. THE PT RESTED IN THE BED T/O THE NIGHT. PT WAS ON THE BIPAP T/O THE NIGHT. PT DENIES ANY PAIN OR SOB THIS SHIFT. CURRENTLY THE PT IS UP IN THE RECLINER WITH THE WHEELS LOCKED, THE CHAIR ALARM ENGAGED AND THE CALL LIGHT WITHIN REACH. DAUGHTER IS AT BEDSIDE. PLAN IS TO DC HOME TODAY ON HOSPICE, PT EAGER TO DC.
[2022-09-02] MEDS ORDERED: ALBU2.5V5 INH (09:08)
[2022-09-02] MEDS ORDERED: MELATONIN5 M1 PO (09:09)
[2022-09-02] MEDS ORDERED: ASPI81CH PO (09:09)
--- NOTE | 2022-09-02 11:08 | NUR ---
PATIENT DISCHARGE WITH [facility]. DAUGHTER PACKED ALL THE PATIENT'S BELONGINGS. ON 2L O2 VIA [facility] FOR TRANSPORT
== END 2022-09-02 11:07 | disposition home or self-care (01) ==
LOC: ER 15:40 → MEDS 15:41
PROVIDERS: Emergency Medicine; Nurse Practitioner Acute Care; Student in an Organized Health Care Education/Training Program; ADMIT Family Medicine
DX: G92.8 Other toxic encephalopathy (principal); J96.02 Acute respiratory failure with hypercapnia; R47.81 Slurred speech; R29.810 Facial weakness; F03.90 Unspecified dementia, unspecified severity, without behavioral disturbance, psychotic disturbance, mood disturbance, and anxiety; G47.33 Obstructive sleep apnea (adult) (pediatric); J98.11 Atelectasis; K21.9 Gastro-esophageal reflux disease without esophagitis; J96.01 Acute respiratory failure with hypoxia; J44.9 Chronic obstructive pulmonary disease, unspecified; I25.10 Atherosclerotic heart disease of native coronary artery without angina pectoris; N18.30 Chronic kidney disease, stage 3 unspecified; Z20.822 Contact with and (suspected) exposure to COVID-19
CPT/HCPCS: 0241U; 36415; 70450; 71045; 80053; 82803; 83880; 84145; 84443; 84484; 85025; 90686; 92526; 92610; 93005; 93010; 94640; 94660; 94664; 94762; 96365; 96366; 96368; 96372; 97116; 97162; 97166; 97530; 97535; 99285-25; A9270; G0008; G0378; J0456; J0696; J1644; J7050